=== PATIENT | male | born 1940 | race Caucasian/White ===

== ENCOUNTER 2016-08-16 13:52 | Day surgery (SDC) | payer MEDICARE ==
[~2016-08-16 13:52] MED LIST: IV START KIT ONE; LACTATED RINGERS 1,000 ML ONE
[2016-08-16] MEDS ORDERED: PROPOFOL 20 ML IV ONE ×2 (14:43→15:02)
[2016-08-16] MEDS ORDERED: LACTATED RINGERS 1,000 ML IV SCH (16:15)
[2016-08-16 20:40] LABS: HELICOBACTER PYLORII DETECTION NEGATIVE (NEGATIVE)
--- NOTE | 2016-08-18 22:03 | SURGPATH ---
[facility] [address] [place] [id number] Patient Name: CYNDI MEHTA MR#: [id number] : 1940 Gender: M Specimen #: [id number] Collected: 08/16/2016 Received: 08/17/2016 Reported: 08/18/2016 Submitting Phys: CLEMENTE BATES Copy To Phys: JOSE MARIANO [facility] Clinical History / Pre-Operative Diagnosis: SALGADO'S ESOPHAGUS; DIARRHEA Specimen Source / Surgical Procedure Performed: #1-DUODENUM BIOPSY; #2-ANTRAL BIOPSY; #3-GE JUNCTION BIOPSY; #4-ESOPHAGUS BIOPSY AT 35 CM; #5-ASCENDING COLON POLYP; #6-RANDOM COLON BIOPSIES; #7-TRANSVERSE COLON POLYP; #8-DISTAL TRANSVERSE POLYP; #9-DESCENDING COLON POLYP; #10-RECTAL POLYP AT 15 CM Interpretation: 1. DUODENAL BIOPSY: - FOCAL ACTIVE DUODENITIS. 2. ANTRAL BIOPSY: - NO SIGNIFICANT PATHOLOGIC ABNORMALITIES IDENTIFIED. 3. GE JUNCTION BIOPSY: - SQUAMOUS AND COLUMNAR LINED MUCOSA WITH INTESTINAL METAPLASIA, CONSISTENT WITH SALGADO'S ESOPHAGUS. - NO DYSPLASIA IDENTIFIED. - SQUAMOUS MUCOSAL CHANGES CONSISTENT WITH REFLUX. 4. ESOPHAGEAL BIOPSY AT 35 CM: - NO SIGNIFICANT PATHOLOGIC ABNORMALITIES IDENTIFIED. 5. ASCENDING COLON POLYP: - TUBULAR ADENOMA. 6. RANDOM COLON BIOPSIES: - INCIDENTAL HYPERPLASTIC POLYP. - ADDITIONAL FRAGMENTS OF COLONIC MUCOSA WITH NO SIGNIFICANT PATHOLOGIC CHANGES. 7. TRANSVERSE COLON POLYP: - TUBULAR ADENOMA. 8. DISTAL TRANSVERSE COLON POLYP: - TUBULAR ADENOMA. 9. DESCENDING COLON POLYP: - HYPERPLASTIC POLYP. 10. RECTAL POLYP AT 15 CM: - HYPERPLASTIC POLYP. Electronically Signed Out Michelle Portillo M.D. Gross Description: #1 The specimen is received in a formalin filled container labeled with the patient's name and "duodenum biopsy". Two lim biopsies are each 0.4 cm. Totally embedded in cassette #1. #2 The specimen is received in a formalin filled container labeled with the patient's name and "antral biopsy". A single lim biopsy is 0.5 cm. Totally embedded in cassette #2. #3 The specimen is received in a formalin filled container labeled with the patient's name and "GE junction". Two lim biopsies are 0.4 and 0.5 cm. Totally embedded in cassette #3. #4 The specimen is received in a formalin filled container labeled with the patient's name and "esophagus biopsy at 35 cm". A single gifford biopsy is 0.5 cm. Totally embedded in cassette #4. #5 The specimen is received in a formalin filled container labeled with the patient's name and "ascending colon polyp". A polypoid lim biopsy is 0.6 x 0.5 x 0.4 cm. Bisected. Totally embedded in cassette #5. #6 The specimen is received in a formalin filled container labeled with the patient's name and "random colon biopsies". Four gifford-lim biopsies are 0.3-0.5 cm. Totally embedded in cassette #6. #7 The specimen is received in a formalin filled container labeled with the patient's name and "transverse colon polyp". Three gifford-lim biopsies are 0.2, 0.3 and 0.4 cm. Totally embedded in cassette #7. #8 The specimen is received in a formalin filled container labeled with the patient's name and "distal transverse polyp". Two lim biopsies are each 0.2 cm. Totally embedded in cassette #8. #9 The specimen is received in a formalin filled container labeled with the patient's name and "descending colon polyp". A single lim biopsy is 0.5 cm. Totally embedded in cassette #9. #10 The specimen is received in a formalin filled container labeled with the patient's name and "rectal polyp at 15 cm". A single lim biopsy is 0.5 cm. Totally embedded in cassette #10. Kelsea Serrano. Microscopic Description: 1. Sections of the duodenal biopsy show benign duodenal mucosa with focal acute inflammation and mucosal congestion. The villi remain long and slender with no evidence of increased intraepithelial lymphocytes. No parasitic organisms are seen. There is no evidence of neoplasm. 2. Sections of the antral biopsy show benign antral mucosa with no significant pathologic changes. 3. Sections of the GE junction biopsy show squamous and columnar lined mucosa with intestinal metaplasia. The squamous mucosa also displays reactive changes, consistent with reflux. There is no evidence of dysplasia. 4. Sections of the esophageal biopsy at 35 cm show benign squamous mucosa with no significant pathologic changes. 5. Sections of the ascending colon polyp show adenomatous mucosal changes without evidence of high-grade dysplasia or invasive carcinoma. 6. Sections of the random colon biopsies show fragments of benign colonic mucosa. One of the fragments displays superficial tufting of the columnar epithelium and crypt serration, consistent with an incidental hyperplastic polyp. No other significant pathologic changes are identified. 7. Sections of the transverse colon polyp show adenomatous mucosal changes without evidence of high-grade dysplasia or invasive carcinoma. 8. Sections of the distal transverse colon polyp show adenomatous mucosal changes without evidence of high-grade dysplasia or invasive carcinoma. 9. Sections of the descending colon polyp show superficial tufting of the columnar epithelium with mucous hypersecretion, consistent with a hyperplastic polyp. 10. Sections of the rectal polyp at 15 cm show superficial tufting of the columnar epithelium and crypt serration, consistent with a hyperplastic polyp. 1: 21402 10: 96025, 3126F 2: 46844 3: 68373 4: 12323 5: 38442 6: 29501 7: 35461 8: 59724 9: 51944 K29.80 K22.70 D12.2 K63.5 D12.3 K62.1
== END 2016-08-16 16:32 | disposition home or self-care (01) ==
LOC: SDC 13:52
PROVIDERS: ATTEND Surgery
PROC: 0DBM8ZX Excision of Descending Colon, Via Natural or Artificial Opening Endoscopic, Diagnostic (ICD-10-PCS; principal; 2016-08-16)
PROC: 0DBL8ZX Excision of Transverse Colon, Via Natural or Artificial Opening Endoscopic, Diagnostic (ICD-10-PCS; 2016-08-16)
PROC: 0DBK8ZX Excision of Ascending Colon, Via Natural or Artificial Opening Endoscopic, Diagnostic (ICD-10-PCS; 2016-08-16)
PROC: 0DB68ZX Excision of Stomach, Via Natural or Artificial Opening Endoscopic, Diagnostic (ICD-10-PCS; 2016-08-16)
PROC: 0DB98ZX Excision of Duodenum, Via Natural or Artificial Opening Endoscopic, Diagnostic (ICD-10-PCS; 2016-08-16)
PROC: 0DB48ZX Excision of Esophagogastric Junction, Via Natural or Artificial Opening Endoscopic, Diagnostic (ICD-10-PCS; 2016-08-16)
PROC: 0DBP8ZX Excision of Rectum, Via Natural or Artificial Opening Endoscopic, Diagnostic (ICD-10-PCS; 2016-08-16)
DX: K20.9 Esophagitis, unspecified (principal); K44.9 Diaphragmatic hernia without obstruction or gangrene; K57.30 Diverticulosis of large intestine without perforation or abscess without bleeding; K63.5 Polyp of colon; D12.2 Benign neoplasm of ascending colon; D12.3 Benign neoplasm of transverse colon; I10 Essential (primary) hypertension; F32.9 Major depressive disorder, single episode, unspecified; J44.9 Chronic obstructive pulmonary disease, unspecified; G47.30 Sleep apnea, unspecified
CPT/HCPCS: 45385; 45380; 43239; 87081; J7120